=== PATIENT | male | born 1985 | race Caucasian/White ===

== ENCOUNTER 2017-02-27 13:04 | Observation (INO) | payer OTHER ==
[2017-02-27] MEDS ORDERED: CLINDAMYCIN 600 MG/D5W RTU 50 ML IV ONE (13:37)
[2017-02-27] MEDS ORDERED: NORMAL SALINE 1000 ML 1,000 ML IV PRN (13:37)
--- NOTE | 2017-02-27 13:41 | ER Document Report ---
ED Skin Rash/Insect Bite/Abscs - General Chief Complaint: Abscess Stated Complaint: GROIN AREA Time Seen by Provider: 02/27/17 13:24 Mode of Arrival: Ambulatory Information source: Patient Notes: 31 male presents to ED for a large infection in his groin with a low-grade fever. Patient states the lump started Wednesday and he tried to aristides it himself. He states now the area of his groin down to his leg including his testicles is swelling, erythematous, and painful. TRAVEL OUTSIDE OF THE [place] IN LAST 30 DAYS: No - HPI Patient complains to provider of: Tender/swollen area Onset: Other - Wednesday Onset/Duration: Gradual Quality of pain: Pressure, Throbbing Severity: Moderate Pain Level: 4 Skin Character: Abscess, Erythema, Swelling, Tenderness, Thickening, Other - Read from umbilicus to about 3 inches down his thighs to include his testicles. States his testicles are tender and sore Skin Temperature: Warm Quality of rash: Painful Identify cause: Yes - That Exacerbated by: Movement, Walking Relieved by: Denies Similar symptoms previously: No Recently seen / treated by doctor: No Past Medical History - General Information source: Patient - smokeless - Social History Smoking Status: Never Smoker Cigarette use (# per day): No Chew tobacco use (# tins/day): No Smoking Education Provided: No Frequency of alcohol use: None Drug Abuse: None Occupation: kitchen help and [employer] Lives with: Spouse/Significant other Family History: DM, Malignancy Patient has suicidal ideation: No Patient has homicidal ideation: No - Past Medical History Cardiac Medical History: Reports: None Pulmonary Medical History: Reports: None EENT Medical History: Reports: None Neurological Medical History: Reports: None Endocrine Medical History: Reports: None Renal/ Medical History: Reports: None Malignancy Medical History: Reports None GI Medical History: Reports: None Musculoskeltal Medical History: Reports Hx Musculoskeletal Trauma Skin Medical History: Reports None Psychiatric Medical History: Reports: None Traumatic Medical History: Reports: Hx Fractures Infectious Medical History: Reports: None Surgical Hx: Negative Past Surgical History: Reports: None Review of Systems - Review of Systems Constitutional: No symptoms reported EENT: No symptoms reported Cardiovascular: No symptoms reported Respiratory: No symptoms reported Gastrointestinal: No symptoms reported Genitourinary: No symptoms reported Male Genitourinary: No symptoms reported Musculoskeletal: No symptoms reported Skin: No symptoms reported Hematologic/Lymphatic: No symptoms reported Neurological/Psychological: No symptoms reported -: Yes All other systems reviewed and negative Physical Exam - Vital signs Vitals: Temp Pulse Resp BP Pulse Ox 99.2 F 93 17 132/75 H 98 02/27/17 13:13 02/27/17 13:13 02/27/17 13:13 02/27/17 13:13 02/27/17 13:13 Interpretation: Normal - General General appearance: Appears well, Alert - HEENT Head: Normocephalic, Atraumatic Eyes: Normal Pupils: PERRL - Respiratory Respiratory status: No respiratory distress Chest status: Nontender Breath sounds: Normal Chest palpation: Normal - Cardiovascular Rhythm: Regular Heart sounds: Normal auscultation Murmur: No - Abdominal Inspection: Normal Distension: No distension Bowel sounds: Normal Tenderness: Nontender Organomegaly: No organomegaly - Genitourinary Male anatomy: 1 - abscess 2 - Erythema and tenderness Tenderness: Nontender Scrotum: Swelling, Redness, Other - tender - Back Back: Normal, Nontender - Extremities General upper extremity: Normal inspection, Nontender, Normal color, Normal ROM , Normal temperature General lower extremity: Normal inspection, Nontender, Normal color, Normal ROM , Normal temperature, Normal weight bearing. No: Rob's sign - Neurological Neuro grossly intact: Yes Cognition: Normal Orientation: AAOx4 Yenni Coma Scale Eye Opening: Spontaneous Yenni Coma Scale Verbal: Oriented [place] Coma Scale Motor: Obeys Commands Yenni Coma Scale Total: 15 Speech: Normal Motor strength normal: LUE, RUE, LLE, RLE Sensory: Normal - Psychological Associated symptoms: Normal affect, Normal mood - Skin Skin Temperature: Warm Skin Moisture: Dry Skin Color: Normal Skin irregularity: Abscess Location of irregularity: Other - groin with erythema to abdomen to thighs including testicle. patient states testicles started swelling erythema and tenderness this am. Irregularity with: Swelling, Tenderness, Warmth, Inflammation Course - Re-evaluation Re-evalutation: 02/27/17 13:[address] Thai due to the size of the abscess in the area that is red and swollen. He examined the patient and stated that this patient a surgical consult for this abscess. Dr. Choudhary consulted he recommended patient be started on normal saline at 150 cc an hour clindamycin 600 mg IV n.p.o. CBC and chemistry. These were all ordered. Dr. Choudhary will come and see the patient in the ER. - Vital Signs Vital signs: Temp Pulse Resp BP Pulse Ox 99.2 F 93 17 132/75 H 98 02/27/17 13:13 02/27/17 13:13 02/27/17 13:13 02/27/17 13:13 02/27/17 13:13 - Laboratory Result Diagrams: 02/27/17 14:00 02/27/17 14:00 Laboratory results interpreted by me: 02/27/17 02/27/17 14:00 14:00 WBC 14.1 H Seg Neutrophils % 79.3 H Lymphocytes % 11.1 L Absolute Neutrophils 11.2 H Total Bilirubin 1.6 H Discharge - Discharge Clinical Impression: Abscess, groin Disposition: ADMITTED OBSERVATION Admitting Provider: Surgicalist Waqas choudhary Unit Admitted: Surgical Floor
[2017-02-27] MEDS ORDERED: MORPHINE SULFATE 10 MG/ML INJ IV ONE (14:03)
[2017-02-27 14:23] LABS: ABSOLUTE BASOPHILS # (AUTO) 0.1 10^3/uL (0.0-0.2); ABSOLUTE EOSINOPHILS # (AUTO) 0.1 10^3/uL (0.0-0.6); ABSOLUTE LYMPHOCYTES (AUTO) 1.6 10^3/uL (0.5-4.7); ABSOLUTE MONOCYTES (AUTO) 1.2 10^3/uL (0.1-1.4); ABSOLUTE NEUT (AUTO) 11.2 10^3/uL (1.7-8.2); BASOPHILS % (AUTO) 0.5 % (0-2); EOSINOPHILS % (AUTO) 0.6 % (0-6); HEMATOCRIT 39.6 % (37.9-51.0); HEMOGLOBIN 13.9 g/dL (13.5-17.0); HGB HCT DIFFERENCE 2.1; LYMPHOCYTES % (AUTO) 11.1 % (13-45); MEAN CORPUSCULAR HEMOGLOBIN 31.8 pg (27.0-33.4); MEAN CORPUSCULAR HGB CONC 35.1 g/dL (32.0-36.0); MEAN CORPUSCULAR VOLUME 91 fl (80-97); MONOCYTES % (AUTO) 8.5 % (3-13); RED BLOOD COUNT 4.38 10^6/uL (4.35-5.55); RED CELL DISTRIBUTION WIDTH 12.3 % (11.5-14.0); SEGMENTED NEUTROPHILS % (AUTO) 79.3 % (42-78); WHITE BLOOD COUNT 14.1 10^3/uL (4.0-10.5)
[2017-02-27 14:36] LABS: ALANINE AMINOTRANSFERASE 26 U/L (21-72); ALKALINE PHOSPHATASE 77 U/L (38-126); ANION GAP 12 (5-19); ASPARTATE AMINO TRANSFERASE 18 U/L (17-59); BILIRUBIN,DIRECT 0.2 mg/dL (0.0-0.4); BILIRUBIN,TOTAL 1.6 mg/dL (0.2-1.3); BLOOD UREA NITROGEN 12 mg/dL (7-20); CALCIUM 9.3 mg/dL (8.4-10.2); CARBON DIOXIDE 27 mmol/L (22-30); CHLORIDE 99 mmol/L (98-107); CREATININE RESULT 0.74 mg/dL (0.52-1.25); GLUCOSE 92 mg/dL (75-110); POTASSIUM 4.1 mmol/L (3.6-5.0); SODIUM 137.6 mmol/L (137-145); TOTAL PROTEIN 6.8 g/dL (6.3-8.2)
[2017-02-27] MEDS ORDERED: MORPHINE SULFATE 10 MG/ML INJ IV PRN ×2 (14:54→19:46)
--- NOTE | 2017-02-27 15:42 | HISTORY AND PHYSICAL E ---
History and Physical NAME: GISELLE ARRIAGA : 1985 AGE: 31Y ADMITTED: 02/27/2017 ROOM: CHIEF COMPLAINT: Groin pains. HISTORY OF PRESENT ILLNESS: This is a 31-year-old male complaining of left groin pains and swelling around 4 days ago. Two days ago he started to drain the swelling with a heated needle and then yesterday and earlier today with some purulent discharge. The swelling had gotten really worse and went to the emergency room today. PAST HISTORY: Unremarkable. SOCIAL HISTORY: He used to smoke cigarettes until about 2 years ago when he switched to chewing tobacco. He denies alcohol or recreational drug use. FAMILY HISTORY: Very strong for diabetes mellitus in that both parents have diabetes. ALLERGIES: None known. REVIEW OF SYSTEMS: Denies any chest pain, shortness of breath, diarrhea, constipation or dysuria. No ear or eye problems. No sore throat. No balance problems or seizures. No easy bruisability. Pains in the left groin as in HPI. The rest of the systems were reviewed and all negative. PHYSICAL EXAMINATION: GENERAL: A well-developed, well-nourished 31-year-old male who is complaining of pain in the left groin. HEENT: Neck is supple, no thyromegaly. LUNGS: Clear. HEART: Regular sinus rhythm. ABDOMEN: Soft with tenderness and swelling in the left groin. There is redness in the small puncture site with some serous drainage. It is markedly tender with redness extending to the left upper inner thigh and the left lateral hip. He also has a couple of yellowish discoloration about 2 mm each on the upper part of the abscess site on the left groin. He claims these just came about yesterday. IMPRESSION: Abscess, left groin. PLAN: Incision and drainage under anesthesia. He ate at 11 a.m. today and most likely will have to do the surgery around 7 p.m. In the meantime he is already started on clindamycin 600 mg IV which will be continued. Also given morphine 4 mg IV for pain and to continue every 4 hours as needed. DICTATING PHYSICIAN: KAVEH LEMONS M.D. [id number] PHY#: [id number] ID: [id number] JOB#: [id number] ACCT: [id number] cc:KAVEH LEMONS M.D. >
[2017-02-27] MEDS ORDERED: LIDOCAINE 0.5% INJ-PF (5 MG/ML) 50 ML SDV ONE (18:37)
[2017-02-27] MEDS ORDERED: FENTANYL CITRATE INJ/PF 250 MCG/5 ML AMPULE ONE (18:48)
[2017-02-27] MEDS ORDERED: ONDANSETRON HCL INJ/PF 4 MG/2 ML SDV ONE (18:49)
[2017-02-27] MEDS ORDERED: DEXAMETHASONE SOD PHOSPHATE INJ 4 MG/1 ML VIAL ONE (18:49)
[2017-02-27] MEDS ORDERED: PROPOFOL INJ 200 MG/20 ML VIAL IV ONE (18:49)
[2017-02-27] MEDS ORDERED: ACETAMINOPHEN 100 ML IV ONE (18:49)
[2017-02-27] MEDS ORDERED: MIDAZOLAM 2 MG/2 ML INJ ONE (18:49)
[2017-02-27] MEDS ORDERED: LIDOCAINE 2% INJ-PF (100 MG/5 ML) SYRINGE ONE (18:49)
[2017-02-27] MEDS ORDERED: DIPHENHYDRAMINE HCL 50 MG/ML VIAL IV PRN (19:46)
[2017-02-27] MEDS ORDERED: FENTANYL CITRATE INJ/PF 100 MCG/2 ML AMPUL IV PRN ×3 (19:46)
[2017-02-27] MEDS ORDERED: PROMETHAZINE HCL INJ 25 MG/1 ML VIAL IV PRN ×2 (19:46)
[2017-02-27] MEDS ORDERED: OXYCODONE-ACETAMINOPHEN 5-325 MG TABLET PO PRN ×2 (19:46)
[2017-02-27] MEDS ORDERED: MEPERIDINE HCL/PF INJ 25 MG/1 ML DISP.SYRIN IV PRN (19:46)
[2017-02-27] MEDS ORDERED: ONDANSETRON HCL INJ/PF 4 MG/2 ML SDV IV PRN (19:46)
[2017-02-27] MEDS ORDERED: IBUPROFEN INJ 800 MG/8 ML VIAL IV ONE (20:10)
[2017-02-27] MEDS: CLINDAMYCIN 600 MG/D5W RTU 600 MG/50 ML RTUPB IV SCH (20:59)
--- NOTE | 2017-02-27 21:37 | OPERATIVE REPORT E ---
Operative Report NAME: GISELLE ARRIAGA : 1985 AGE: 31Y DATE OF SURGERY: 02/27/2017 ROOM: 533 PREOPERATIVE DIAGNOSIS: Abscess, left groin. POSTOPERATIVE DIAGNOSIS: Deep abscess of the subcutaneous and below the anterior fascia. OPERATION: Incision and drainage and pulse lavage of the abscess of the left groin including subfascial abscess. SURGEON: KAVEH LEMONS M.D. ANESTHESIA: General. INDICATION: This is a 31-year-old male who noted swelling of the left groin about 4-5 days ago. It got worse and yesterday he tried to puncture it with a heated needle and then did it again this morning, but the swelling persisted. He said he got a small amount of pus. Since the swelling got worse, he went to the emergency room. DESCRIPTION OF PROCEDURE: After adequate general anesthesia, the patient was placed in the supine position. The left groin prepped and draped in the usual sterile fashion. Appropriate timeout was performed. Next, the puncture site the patient made was then enlarged laterally and medially. Cultures were obtained. Next the subcutaneous was tunneled laterally and medially and the whole skin incision was enlarged laterally and medially to a distance of a total of 10.5 cm. The fascia underneath was noted to be bulging and opening it with cautery, some dark fluid that was somewhat thick was evacuated. Cultures of this was also done. Underneath the fascia was muscle that was pink. No other abscess area was noted. The operative site was then pulse lavaged with 3 L of saline. Following this, further hemostasis was obtained with electrocautery. The wound was subsequently packed with Iodoform gauze. A sterile dressing was placed on top of the incision. Needle, instruments and sponge counts were all correct. Estimated blood loss was 20 mL. The patient was then brought to recovery room in satisfactory condition. DICTATING PHYSICIAN: KAVEH LEMONS M.D. [id number] PHY#: [id number] ID: [id number] JOB#: [id number] ACCT: [id number] cc:KAVEH LEMONS M.D. >
--- NOTE | 2017-02-27 23:41 | EKG REPORT ---
SEVERITY:- ABNORMAL ECG - SINUS RHYTHM INCOMPLETE RIGHT BUNDLE BRANCH BLOCK : Confirmed by: Vega Roberson MD 27-Feb-2017 23:40:47
[2017-02-28] MEDS: CLINDAMYCIN 600 MG/D5W RTU 600 MG/50 ML RTUPB IV SCH ×3 (02:31→14:36)
--- NOTE | 2017-02-28 13:07 | DISCHARGE SUMMARY E ---
Discharge Summary NAME: GISELLE ARRIAGA : 1985 AGE: 31Y ADMITTED: 02/27/2017 DISCHARGED: 02/28/2017 FINAL DIAGNOSIS: Abscess of the left groin with subfascial component. PROCEDURE: Incision and drainage of abscess of the left groin with division of anterior fascia and packing of the wound. Operation done 02/27/2017. Discharge date 02/28/2017. HOSPITAL COURSE: This is a 31-year-old male with about a 5 day duration of pain and swelling of the left groin. He attempted to drain the area with heated needle. Incision and drainage and unroofing of subfascial abscess was done on 02/27/2017 and PulsaVac with packing of the wound. Today, this morning, he is afebrile and having much less pain. We will discharge him after the last dose of IV antibiotics and put him on p.o. Augmentin to take 1 three times a day for the next 10 days. He will also be followed in the [facility] for removal of the packing this week. He is advised not to do any heavy lifting more than 20 pounds, but should be able to drive. He can have a regular diet. DICTATING PHYSICIAN: KAVEH LEMONS M.D. [id number] PHY#: [id number] ID: [id number] JOB#: [id number] ACCT: [id number] cc:KAVEH LEMONS M.D. >
[2017-02-28 15:31] VITALS: BP 109/53
== END 2017-02-28 16:01 | disposition home or self-care (01) ==
LOC: ER 13:04 → EH 14:40 → UNDOADMOB 15:18 → EH 15:18 → 5 17:01
PROVIDERS: ADMIT Surgery; ATTEND Surgery
PROC: 0JDC3ZZ Extraction of Pelvic Region Subcutaneous Tissue and Fascia, Percutaneous Approach (ICD-10-PCS; 2017-02-27)
PROC: 0J9C3ZZ Drainage of Pelvic Region Subcutaneous Tissue and Fascia, Percutaneous Approach (ICD-10-PCS; principal; 2017-02-27 19:00)
DX: L02.214 Cutaneous abscess of groin (principal); Z72.0 Tobacco use
CPT/HCPCS: 26990; 99284; 96375; 96365; 36415; 87040; 87070; 87205; 85025; 87075; 87077; 80053; 87186; 93005; 93010; 11043; G0378 ×3; A6266; J2250; J1100; J3010; J2001; J2270; J2405; J7030; J2704; J0131; J1741; 400; J3490

== ENCOUNTER → 2019-09-21 | Outpatient (CLI) | payer OTHER ==
--- NOTE | 2019-09-22 11:40 | RADIOLOGY REPORT (SQ) ---
EXAM DESCRIPTION: MRI RT UPPER JOINT WITHOUT COMPLETED DATE/TIME: 09/21/2019 9:57 pm REASON FOR STUDY: S46.291A INJ MUSCLE, FASCIA AND TENDON OF PRT BICEPS, RIGHT ARM, INIT S46.291A IN J MUSCLE, FASCIA AND TENDON OF PRT BICEPS, RIGHT COMPARISON: None. TECHNIQUE: Right elbow images acquired and stored on PACS. Multiplanar images to include fat sensiti ve sequences as T1, fluid sensitive sequences as T2/STIR, cartilage sensitive sequences as FSPD, and gradient echo sequences. LIMITATIONS: None. FINDINGS: Full-thickness tear of the distal biceps tendon attachment to the radial tuberosity. Ther e is proximal retraction of the tendon about 10 cm, retracted tendon is best shown on sagittal image 19 and coronal image 22. There is minimal edema in the soft tissues adjacent to the radial tuberosit y, barely any distal tendon is attached on axial images 4 and 5. BONE MARROW: No alteration of signal to suggest marrow replacement or edema. No occult fracture. No l arge osteophytes. JOINT EFFUSION: None noted. No loose bodies. ARTICULAR SURFACES: Normal. MEDIAL COLLATERAL LIGAMENT COMPLEX: Intact without edema or tear. MEDIAL EPICONDYLE AND COMMON FLEXOR TENDON: No tendinopathy. No partial or full-thickness tear. LATERAL COLLATERAL LIGAMENT: Intact without edema or tear. LATERAL EPICONDYLE AND COMMON EXTENSOR TENDON: No tendinopathy. No partial or full-thickness tear. LATERAL ULNAR COLLATERAL LIGAMENT: Intact without evidence for tear. BICEPS TENDON: Full-thickness tear as above TRICEPS TENDON: Intact. ULNAR NERVE: Well-visualized without edema or encroachment. ADJACENT SOFT TISSUES: No masses or edema. OTHER: No other significant finding. IMPRESSION: Full-thickness distal biceps tendon tear, with proximal retraction of the muscle and ten don TECHNICAL DOCUMENTATION: JOB ID: [id number] 2010 [employer]- All Rights Reserved Reading location - IP/workstation name: [facility]
== END ==
LOC: RAD 18:49
PROVIDERS: ATTEND Physician Assistant
DX: S46.211A Strain of muscle, fascia and tendon of other parts of biceps, right arm, initial encounter (principal); X58.XXXA Exposure to other specified factors, initial encounter; M25.521 Pain in right elbow